=== PATIENT | male | born 1990 ===

== ENCOUNTER 2017-11-10 05:18 | Inpatient (IN) | payer OTHER ==
[~2017-11-10] VITALS: Ht 162.6 cm; Wt 115.7 kg
[2017-11-10] VITALS (11 sets, daily range): BP systolic 121–157; BP diastolic 69–99
[~2017-11-10 05:18] MED LIST: Dexamethasone 20mg/5ml IVP ONE
[2017-11-10] MEDS ORDERED: ceFAZolin sod 1 GM in NS 55 ML IVPB ONE (06:00)
[2017-11-10] MEDS ORDERED: HYDROmorphone 1mg/ml Carpuject SUBQ PRN (06:00)
[2017-11-10] MEDS ORDERED: Morphine Sulfate 4mg/ml Inj IM PRN (06:00)
[2017-11-10] MEDS ORDERED: Dexamethasone 20mg/5ml IVP ONE (06:00)
[2017-11-10] MEDS ORDERED: Chloraseptic Spray 20mL Bottle ORAL PRN (06:00)
[2017-11-10] MEDS ORDERED: oxyCODONE 5mg IR tab ORAL PRN (06:00)
[2017-11-10] MEDS ORDERED: Albuterol ud Inhalation HHN PRN (06:15)
[2017-11-10] MEDS ORDERED: Albuterol/Ipratropium 3ml neb HHN PRN (06:15)
[2017-11-10] MEDS ORDERED: METFORMIN HCL850 M1 ORAL (06:35)
[2017-11-10] MEDS ORDERED: METOPROLOL TART25 MG ORAL (06:35)
[2017-11-10] MEDS ORDERED: LISINOPRIL20 MG ORAL (06:35)
[2017-11-10] MEDS ORDERED: Thrombin 5000 units TOPIC ONE (06:43)
[2017-11-10] MEDS ORDERED: Lidocaine 1% Plain 30 ml INJ ONE (06:43)
[2017-11-10] MEDS ORDERED: Surgicel 4in x 8in TOPIC ONE (06:43)
[2017-11-10] MEDS ORDERED: LR 1000ml 1,000 ML IVLG SCH (06:43)
[2017-11-10] MEDS ORDERED: Lidocaine 1% 10mg/ml/EPI 0.01mg/ml 50ml INJ ONE (06:44)
[2017-11-10] MEDS ORDERED: Vancomycin 1gm inj IVPB ONE (06:44)
[2017-11-10] MEDS ORDERED: Bupivacaine 0.5% Inj 30 ml vial INJ ONE (06:44)
[2017-11-10] MEDS ORDERED: Bacitracin 50000 Units Vial ONE (06:44)
[2017-11-10] MEDS ORDERED: HYDROcodone/Acetamin 7.5/325 tab ORAL PRN (06:45)
[2017-11-10] MEDS ORDERED: Metoclopramide 10mg/2ml Inj IVP PRN (06:45)
[2017-11-10] MEDS ORDERED: Norco 5mg/325mg tab ORAL PRN (06:45)
[2017-11-10] MEDS ORDERED: Ketorolac 30mg Inj IV PRN (06:45)
[2017-11-10] MEDS ORDERED: Atropine Inj 1mg/10ml Syr IV PRN (06:45)
[2017-11-10] MEDS ORDERED: Hydromorphone 0.5mg/0.5ml inj IVP PRN (06:45)
[2017-11-10] MEDS ORDERED: LORazepam Inj 2mg/ml 1ml IV PRN (06:45)
[2017-11-10] MEDS ORDERED: fentaNYL 100 mcg/2 mL IV PRN (06:45)
[2017-11-10] MEDS ORDERED: oxyCODONE HCL/Acetaminophen 5/325mg ORAL PRN (06:45)
[2017-11-10] MEDS ORDERED: Labetalol 5mg/ml 20ml vial IV PRN (06:45)
[2017-11-10] MEDS ORDERED: Acetaminophen (Non formulary) 100 ML IV ONE (06:45)
[2017-11-10] MEDS ORDERED: DiphenhydrAMINE 50mg/ml Inj IVP PRN (06:45)
[2017-11-10] MEDS ORDERED: Midazolam 2mg/2ml Inj IVP PRN (06:45)
[2017-11-10] MEDS ORDERED: Ketorolac 60mg Inj IV PRN (06:45)
--- NOTE | 2017-11-10 06:47 | Anethesia Preoperative Eval ---
Anesthesia Pre-op PMH/ROS General Date of Evaluation: Nov 10, 2017 Time of Evaluation: 07:01 Anesthesiologist: Chris ASA Score: ASA 3 Mallampati Score Class I : Soft palate, uvula, fauces, pillars visible Class II: Soft palate, uvula, fauces visible Class III: Soft palate, base of uvula visible Class IV: Only hard plate visible Mallampati Classification: Class II Surgeon: Beth Diagnosis: Neck Pain Surgical Procedure: ACDF C5-6 Anesthesia History: none Family History: no anesthesia problems Allergies: Coded Allergies: No Known Allergies (Unverified , 11/09/17) Medications: see eMAR Past Medical History Cardiovascular: Reports: HTN Neurologic/Psychiatric: Reports: depression/anxiety Endocrine: Reports: DM Other: obesity - BMI 46 Anesthesia Pre-op Phys. Exam Physician Exam Last Vital Signs Date Time Temp Pulse Resp B/P (MAP) Pulse Ox O2 Delivery O2 Flow Rate FiO2 11/10/17 06:38 97.4 91 20 137/75 96 Room Air Constitutional: NAD Neurologic: CN 2-12 intact Cardiovascular: RRR Respiratory: CTA Gastrointestinal: S/NT/ND Airway Exam Mallampati Score: Class II MO: limited ROM: limited Teeth: intact Anesthesia Pre-op A/P Risk Assessment & Plan Assessment: ASA 3 Plan: GA, GlideScope, BIS Status Change Before Surgery: No Pre-Antibiotics Dru Grams Ancef IV Given Within 1 Hr of Incision: Yes Time Given: 07:31 Isreal Grimes MD Nov 10, 2017 06:47
--- NOTE | 2017-11-10 06:48 | Immediate Post-Op Evaluation ---
Immediate Post-Op Evalulation Immediate Post-Op Evalulation Procedure: ACDF C5-6 Date of Evaluation: Nov 10, 2017 Time of Evaluation: 10:14 IV Fluids: 1300 LR Blood Products: 0 Estimated Blood Loss: 42 Urinary Output: 0 Blood Pressure Systolic: 148 Blood Pressure Diastolic: 99 Pulse Rate: 86 Respiratory Rate: 16 O2 Sat by Pulse Oximetry: 95 Temperature (Fahrenheit): 97.8 Pain Score (1-10): 2 Nausea: No Vomiting: No Complications 0 Patient Status: awake, reacts, patent, extubated, none Hydration Status: adequate Dru Grams Ancef IV Given Within 1 Hr of Incision: Yes Time Given: 07:31 Isreal Grimes MD Nov 10, 2017 06:48
[2017-11-10] MEDS ORDERED: NS Irrig 1000ml ONE (07:00)
[2017-11-10] MEDS ORDERED: Glycopyrrolate 0.2mg/ml 1ml Vial ONE (07:00)
[2017-11-10] MEDS ORDERED: Propofol 1,000mg/ 100ml btl IV ONE (07:00)
[2017-11-10] MEDS ORDERED: LR 1000ml ONE (07:00)
[2017-11-10] MEDS ORDERED: Neostigmine 1mg/ml 10ml Inj ONE (07:00)
[2017-11-10] MEDS ORDERED: Zemuron 50mg/5ml Inj IV ONE (07:00)
[2017-11-10] MEDS ORDERED: fentaNYL 100 mcg/2 mL IV ONE (07:00)
[2017-11-10] MEDS ORDERED: Sterile Water Irrig 1000ml IRRIG ONE (07:00)
[2017-11-10] MEDS ORDERED: Lidocaine 1% MPF 10mg/ml 5ml ONE (07:00)
[2017-11-10] MEDS ORDERED: Labetalol 5mg/ml 20ml vial IV ONE (07:00)
[2017-11-10] MEDS: Albuterol/Ipratropium 3ml neb HHN SCH ×2 (07:00→13:00)
--- NOTE | 2017-11-10 07:12 | Pre-Procedure Note/Attestation ---
Pre-Procedure Note/Attestation Complete Prior to Procedure Planned Procedure: not applicable Procedure Narrative: C5-6 ADR posiible ACDF C4-5 possib,e ACDF Indications for Procedure Pre-Operative Diagnosis: Post trauma discogenic neck pain C5-6 Attestation I attest that I discussed the nature of the procedure; its benefits; risks and complications; and alternatives (and the risks and benefits of such alternatives ), prior to the procedure, with the patient (or the patient's legal petroleum products sales representative). I attest that, if there was a reasonable possibility of needing a blood transfusion, the patient (or the patient's legal petroleum products sales representative) was given the [place] Department [employer] Services standardized written summary, pursuant to the Claus Alexis Blood Safety Act ([place] Health and Safety Code # 1645, as amended). I attest that I re-evaluated the patient just prior to the surgery and that there has been no change in the patient's H&P, except as documented below: NIMCO WHITE Nov 10, 2017 07:12
--- NOTE | 2017-11-10 10:35 | Brief Operative Note ---
Immediate Post Operative Note Operative Note Pre-op Diagnosis: Post trauma discogenic neck pain C5-6 Procedure: Hemivertebrectomy C5, C6 Interbody titanium reconstruction, fusion correction deformity C5-6 osteopromotive C5-6 Anterior plate C5, C6 SSEP High power body habitus Post-op Diagnosis: same as pre-op Findings: consistent w/pre-op dx studies Surgeon: Beth Intern: Radha GONZALEZ Anesthesiologist: Sydney VIVAR Anesthesia: general Specimen: none Complications: none Condition: stable Fluids: anesthesia Estimated Blood Loss: minimal Implant(s) used?: Yes NIMCO WHITE Nov 10, 2017 10:34
[2017-11-10] MEDS ORDERED: D5 1/2NS 1,000 ML IV SCH (11:30)
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
[2017-11-10] MEDS ORDERED: NovoLOG Insulin Flexpen SUBQ SCH (12:00)
[2017-11-10] MEDS ORDERED: ceFAZolin sod 1 GM in D5W 55 ML IV SCH (13:30)
[2017-11-10] MEDS ORDERED: Hydromorphone 0.5mg/0.5ml inj SUBQ PRN (14:45)
[2017-11-10] MEDS ORDERED: PERCOCET 10-321 EACH ORAL (15:31)
[2017-11-10] MEDS ORDERED: SOMA350 MG PO (15:32)
--- NOTE | 2017-11-10 16:00 | Operative Note - Dictated ---
DATE OF OPERATION: 11/10/2017 ADMITTING/PREOPERATIVE DIAGNOSIS: Posttraumatic diskogenic neck pain, C5-C6. POSTOPERATIVE DIAGNOSIS: Posttraumatic diskogenic neck pain, C5-C6. OPERATIVE PROCEDURE: 1. Hemivertebrectomy, C5. 2. Hemivertebrectomy, C6. 3. Interbody reconstruction and fusion with correction deformity. 4. Titanium Darshan implant containing osteopromotive material for fusion, C5-C6. 5. Anterior internal plate fixation, C5-C6. 6. Intraoperative fluoroscopy interpreted by surgeons. 7. The patient's body habitus greater than 95th percentile for height increasing complexity of surgery. 8. Diabetic patient, increasing care. 9. SSEP monitoring. 10. High-power magnification and dissection. ESTIMATED BLOOD LOSS: Minimal. COMPLICATIONS: None. POSTOPERATIVE CONDITION: Good/stable. DESCRIPTION OF PROCEDURE: The patient was brought to the operating room and in supine position general anesthesia with intubation was induced. IV antibiotics were administered 30 minutes prior to incision time. After appropriate positioning, cross-table imaging was obtained demonstrating the correct level for incision placement. Level was marked. The anterior cervical spine was sterilely prepped and draped free in usual sterile fashion. A transverse incision on the left was sharply placed through dermis and epidermis. Electrocautery dissection was carried through the extensor subcutaneous tissue to the level of the platysmas muscles, identified, isolated, and transected in line with the incision. Blunt dissection was carried medial to the sternocleidomastoid muscle and carotid sheath through the deep cervical and pretracheal fascia to the midline between the right and left longus colli muscles. Spinal needle was placed into the disk space with the needle bent at 90-degree angle so as to avoid penetration greater than 3 mm. Cross-table imaging was obtained demonstrating the correct level for further surgery. Retractors were placed. Retractor blades utilized with a maximum length of retractors in the set manufacturers service representative of the extremely deep dissection field. Hemivertebrectomy inferior C5 and superior C6 was performed to the posterior longitudinal ligament. Posterior longitudinal ligament resected. Spinal cord decompressed. Physiologic anatomy precluded disk placement. Interpositional grafting of a lordotic titanium cage of the appropriate dimensions containing osteopromotive material was tamped into position with correction of the deformity to fit excellent. Confirmation of position and fit by fluoroscopic imaging. Anterior internal plate fixation undertaken in compressive mode after 10 pounds of traction on the neck was removed. Wound was irrigated with antibiotic containing saline. Exploration revealed no obvious excoriation or laceration of vital structures. The patient remained stable. Reapproximation of the platysmas muscle with Vicryl suture material. This was after 500 mg of vancomycin powder was placed deep to the platysmas muscle. FloSeal was placed prior to the placement of the vancomycin. Reapproximation with inverted interrupted sutures of Vicryl suture material in dermis and epidermis. Surgical strips placed followed with Dermabond. The patient was awakened, extubated in the operating room, and transported to postoperative recovery in good stable condition. Jose Luis Campos M.D. DR: Glenna JOB#: [id number] CC:
--- NOTE | 2017-11-10 17:07 | Diagnostic Imaging Report ---
Indication: Intraoperative Technique: Intraoperative images Comparison: none Findings: Intraoperative images document localizing needles at what appears to be the C3-4 disc and lateral to C5. A subsequent image demonstrates a localizer tool at the level of the C5-6 disc. Subsequent images document anterior fusion of C5 and C6. Impression: Intraoperative imaging, as described
[2017-11-11 09:26] VITALS: BP 135/80
--- NOTE | 2017-11-11 09:26 | 48 Hour Post Anesthesia Eval ---
Post Anesthesia Evaluation Procedure: ACDF C5-6 Date of Evaluation: Nov 11, 2017 Time of Evaluation: 09:25 Blood Pressure Systolic: 135 0: 80 Pulse Rate: 76 Respiratory Rate: 18 Temperature (Fahrenheit): 98 O2 Sat by Pulse Oximetry: 99 Airway: patent Nausea: No Vomiting: No Pain Intensity: 0 Hydration Status: adequate Mental Status/LOC: patient returned to baseline Follow-up care needed: patient intructions given Osvaldo Gay M.D. Nov 11, 2017 09:26
--- NOTE | 2017-11-11 15:33 | Discharge Summary ---
Discharge Summary Hospital Course Date of Admission Nov 10, 2017 at 05:18 Date of Discharge Nov 10, 2017 at 16:36 Admitting Diagnosis HPI Jose R Jaime is a 27 year old male who was admitted on Nov 10, 2017 at 05:18 for Cervical Discogenic Neck Pain Hospital Course [id number] Discharge Discharge Disposition Patient was discharged to Home (01) Discharge Diagnoses: Qi Cody NP Nov 11, 2017 15:33
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
== END 2017-11-10 16:36 | disposition home or self-care (01) | DRG 472 ==
LOC: SDSOVERFLO 05:18 → 3E 11:00
PROC: 0RG10A0 Fusion of Cervical Vertebral Joint with Interbody Fusion Device, Anterior Approach, Anterior Column, Open Approach (ICD-10-PCS; principal; 2017-11-10 07:00)
PROC: 4A11X4G Monitoring of Peripheral Nervous Electrical Activity, Intraoperative, External Approach (ICD-10-PCS; principal; 2017-11-10 07:00)
PROC: 0RB30ZZ Excision of Cervical Vertebral Disc, Open Approach (ICD-10-PCS; principal; 2017-11-10 07:00)
DX: M54.2 Cervicalgia (principal); Z68.41 Body mass index [BMI] 40.0-44.9, adult; E66.9 Obesity, unspecified; I10 Essential (primary) hypertension; E11.9 Type 2 diabetes mellitus without complications; Z87.828 Personal history of other (healed) physical injury and trauma
CPT/HCPCS: 36415; 72040; 76001; 82962; 86850; 86900; 86901; 87081; 94003; 94150; J1815; J2405; J2710